=== PATIENT | female | born 1955 | race Caucasian/White ===

== ENCOUNTER 2024-06-27 13:58 | Inpatient (IN) | payer MEDICARE, MEDICAID ==
[~2024-06-27] VITALS: Ht 160 cm; Wt 76.3 kg
[~2024-06-27 13:58] MED LIST: LISI-892 PO; TRAZ-252 PO
[2024-06-27 15:34] LABS: BASOPHILS % (AUTO) 0.7 % (0.0-2.0); LYMPHOCYTES # (AUTO) 2.2 K/uL (1.0-4.8); LYMPHOCYTES % (AUTO) 37.3 % (22.0-44.0); MEAN CORPUSCULAR HEMOGLOBIN 29.8 pg (26.0-34.0); MEAN CORPUSCULAR HGB CONC 32.5 G/dL (31.0-37.0); MEAN CORPUSCULAR VOLUME 92 fL (80-100); MONOCYTES # (AUTO) 0.5 K/uL (0.1-1.0); MONOCYTES % (AUTO) 7.7 % (2.0-9.0); NEUTROPHILS % (AUTO) 51.3 % (40.0-70.0); PLATELET COUNT (AUTO) 117 K/uL (150-450); RED BLOOD CELL COUNT(AUTO) 4.37 MIL/uL (4.00-5.20); RED CELL DISTRIBUTION WIDTH 15.5 % (11.5-14.5); WHITE BLOOD COUNT (AUTO) 5.9 K/uL (4.5-11.0)
[2024-06-27 15:42] LABS: ANION GAP 10 mmol/L (8-16); CALCIUM, TOTAL 8.9 mg/dL (8.8-10.5); CARBON DIOXIDE 26 mmol/L (22-29); CHLORIDE 108 mmol/L (98-107); CREATININE 0.76 mg/dL (0.60-1.30); GLOMERULAR FILTR. RATE CALC > 60 mL/min (>60); GLUCOSE,RANDOM 90 mg/dL (70-110); POTASSIUM 3.7 mmol/L (3.5-5.1); SODIUM SERUM 144 mmol/L (136-145); UREA NITROGEN, BLOOD 9 mg/dL (7-18)
[2024-06-27 16:09] LABS: ALCOHOL, BLOOD (SERUM) 86 mg/dL (0-10)
[2024-06-27] MEDS: ChlordiazePOXIDE HCL 25 MG CAPSULE PO ONE (17:32)
[2024-06-27 17:37] LABS: COVID AG,FIA SOURCE NASAL SWAB
[2024-06-27 17:54] LABS: SARS-COV2 (COVID) ANTIGEN,FIA Negative (Negative)
[2024-06-27] MEDS: LORazepam 2 MG TABLET PO ONE (19:42)
[2024-06-28] MEDS ORDERED: ChlorproMAZINE HCL 25 MG TABLET PO PRN (02:30)
[2024-06-28 04:30] VITALS: BP 110/64; PULSE 78; RESP 18; TEMP 97.9; O2SAT 100
[2024-06-28 05:13] VITALS: BP 110/64; PULSE 78; RESP 18; TEMP 97.9; O2SAT 100
[2024-06-28] MEDS: LORazepam 1 MG TABLET PO PRN ×2 (08:40→19:09)
[2024-06-28] MEDS ORDERED: PNEUMOCOCCAL VACCINE POLYVALENT 0.5 ML SYRINGE [PPSV23] IM. ONE (09:15)
[2024-06-28 09:49] VITALS: BP 149/77; PULSE 77; RESP 18; TEMP 98.1; O2SAT 99
[2024-06-28] MEDS ORDERED: BACITRACIN 28 GM OINTMENT TP PRN (10:15)
[2024-06-28] MEDS ORDERED: DOCUSATE SODIUM 100 MG CAPSULE PO PRN (10:15)
[2024-06-28] MEDS ORDERED: MAG HYDROX/ALUMINUM HYD/SIMETH ES 30 ML SUSPENSION UDCUP PO PRN (10:15)
[2024-06-28] MEDS ORDERED: MAGNESIUM HYDROXIDE SUSPENSION 30 ML UDCUP PO PRN (10:15)
[2024-06-28] MEDS ORDERED: ONDANSETRON 4 MG TABLET PO PRN (10:15)
[2024-06-28] MEDS ORDERED: CloNIDine HCL 0.1 MG TABLET PO PRN (10:15)
[2024-06-28] MEDS ORDERED: ACETAMINOPHEN 325 MG TABLET PO PRN (10:15)
[2024-06-28] MEDS ORDERED: OMEPRAZOLE 20 MG CAPSULE PO PRN (10:15)
[2024-06-28] MEDS ORDERED: LOPERAMIDE HCL 2 MG CAPSULE PO PRN (10:15)
[2024-06-28] MEDS ORDERED: BENZOCAINE/MENTHOL [CEPACOL] LOZENGE PO PRN (10:15)
[2024-06-28] MEDS ORDERED: PETROLATUM,WHITE 28 GM JELLY TP PRN (10:15)
[2024-06-28 21:17] VITALS: BP 143/78; PULSE 57; RESP 16; TEMP 98.2; O2SAT 97
[2024-06-29] MEDS: GABAPENTIN 100 MG CAPSULE PO SCH (08:24)
[2024-06-29] MEDS: ESCITALOPRAM OXALATE 10 MG TABLET PO SCH (08:24)
[2024-06-29 10:11] VITALS: BP 134/74; PULSE 88; RESP 18; TEMP 97.1; O2SAT 99
[2024-06-29 21:39] VITALS: BP 131/77; PULSE 92; RESP 19; TEMP 98.6; O2SAT 99
[2024-06-30 09:23] VITALS: BP 157/77; PULSE 78; RESP 18; TEMP 97.7; O2SAT 98
[2024-06-30] MEDS: ChlorproMAZINE HCL 50 MG TABLET PO PRN (10:37)
[2024-06-30 12:56] LABS: GLUCOMETER DEV NAME(LOC) 3EX.2; GLUCOSE,POINT OF CARE 288 MG/DL (70-110)
[2024-06-30 15:15] VITALS: BP 136/101; PULSE 89; RESP 18; O2SAT 95
[2024-06-30 15:30] VITALS: BP 107/54; PULSE 77; RESP 18; O2SAT 94
[2024-06-30 18:00] VITALS: BP 100/56; PULSE 78; RESP 18; O2SAT 94
[2024-06-30 22:42] VITALS: BP 132/57; PULSE 68; RESP 18; TEMP 97.6; O2SAT 97
[2024-07-01 10:29] VITALS: BP 113/52; PULSE 83; RESP 18; TEMP 97; O2SAT 98
[2024-07-01 22:30] VITALS: RESP 16
[2024-07-02] MEDS: ZOLPIDEM TARTRATE 10 MG TABLET PO PRN (00:54)
[2024-07-02 09:18] VITALS: BP 128/72; PULSE 89; RESP 18; TEMP 97.8; O2SAT 97
[2024-07-02 14:21] VITALS: BP 142/86; PULSE 72; RESP 17; TEMP 98.1
[2024-07-02] MEDS: TraMADol HCL 50 MG TABLET PO PRN (14:21)
[2024-07-02 15:21] VITALS: BP 129/79; PULSE 71; RESP 17; TEMP 98
[2024-07-02 21:50] VITALS: BP 121/72; PULSE 70; RESP 19; TEMP 98.2; O2SAT 96
[2024-07-02 22:55] VITALS: RESP 18
[2024-07-03] VITALS (9 sets, daily range): BP systolic 105–138; BP diastolic 67–86; PULSE 73–94; RESP 17–18; TEMP 97.2–98.6; O2SAT 98–99
[2024-07-04] MEDS: LORazepam 0.5 MG TABLET PO PRN (01:27)
[2024-07-04 04:59] VITALS: BP 149/86; PULSE 91; RESP 18; O2SAT 96
[2024-07-04 05:59] VITALS: RESP 18
[2024-07-04 11:40] VITALS: BP 140/86; PULSE 80; RESP 18; TEMP 97.9; O2SAT 95
[2024-07-04 12:40] VITALS: BP 132/81; PULSE 78; RESP 17; TEMP 98; O2SAT 96
[2024-07-04 22:18] VITALS: BP 149/77; PULSE 86; RESP 18; TEMP 97.3; O2SAT 99
[2024-07-05] MEDS: MULTIVITAMINS, THERAPEUTIC TABLET PO SCH (08:57)
[2024-07-05] MEDS: FOLIC ACID 1 MG TABLET PO SCH (08:58)
[2024-07-05] MEDS: DULoxetine HCL 20 MG CAPSULE PO SCH (08:58)
[2024-07-05] MEDS: THIAMINE 100 MG TABLET PO SCH (08:58)
[2024-07-05 09:00] VITALS: BP 122/59; PULSE 89; RESP 17; TEMP 97.1
[2024-07-05 16:01] VITALS: BP 129/62; PULSE 80; RESP 17; TEMP 98.1
[2024-07-05] MEDS: PREGABALIN 25 MG CAPSULE PO SCH (16:01)
[2024-07-05 17:03] VITALS: BP 14/75; PULSE 85; RESP 18; TEMP 97.4; O2SAT 0
[2024-07-05 22:07] VITALS: BP 120/75; PULSE 87; RESP 18; TEMP 97.8; O2SAT 0
[2024-07-05 22:40] VITALS: BP 122/80; PULSE 85; RESP 18; TEMP 98; O2SAT 0
[2024-07-05 23:50] VITALS: BP 128/70; PULSE 80; RESP 18; TEMP 97.7; O2SAT 0
[2024-07-06 04:53] VITALS: BP 139/85; PULSE 99; RESP 18; TEMP 98; O2SAT 0
[2024-07-06 06:02] VITALS: RESP 17
[2024-07-06 08:00] VITALS: BP 129/76; PULSE 79; RESP 19; TEMP 97.3; O2SAT 100
[2024-07-06 14:32] VITALS: BP 130/72; PULSE 72; RESP 18; TEMP 98; O2SAT 98
[2024-07-06 21:06] VITALS: BP 136/60; PULSE 68; RESP 18; TEMP 98.1; O2SAT 97
[2024-07-07] MEDS: PREGABALIN 50 MG CAPSULE PO SCH (08:13)
[2024-07-07] MEDS: DULoxetine HCL 30 MG CAPSULE PO SCH (08:13)
[2024-07-07 10:11] VITALS: BP 118/60; PULSE 90; RESP 18; TEMP 97.9; O2SAT 96
[2024-07-07 13:07] VITALS: BP 124/64; PULSE 79; RESP 18; TEMP 97.6; O2SAT 97
[2024-07-07 21:03] VITALS: RESP 18
[2024-07-07 21:20] VITALS: BP 141/78; PULSE 97; RESP 18; TEMP 97.3; O2SAT 95
[2024-07-07 23:15] VITALS: RESP 18
[2024-07-08 00:15] VITALS: RESP 17
[2024-07-08 06:45] VITALS: BP 114/79; PULSE 84; RESP 18; O2SAT 95
[2024-07-08 10:27] VITALS: BP 147/66; PULSE 85; RESP 17; TEMP 98; O2SAT 98
[2024-07-08 20:31] VITALS: BP 150/91; PULSE 83; RESP 20; TEMP 97.3; O2SAT 100
[2024-07-08 23:54] VITALS: RESP 18
[2024-07-09 00:54] VITALS: RESP 18
[2024-07-09 08:30] VITALS: BP 156/81; PULSE 76; RESP 18; TEMP 97.3; O2SAT 98
[2024-07-09] MEDS: PREGABALIN 75 MG CAPSULE PO SCH (08:38)
[2024-07-09] MEDS: DULoxetine HCL 20 MG CAPSULE PO SCH (08:38)
[2024-07-09 18:25] VITALS: BP 145/70; PULSE 85; RESP 18; O2SAT 98
[2024-07-09 21:23] VITALS: BP 140/72; PULSE 80; RESP 18; TEMP 97.5; O2SAT 99
[2024-07-09 21:45] VITALS: BP 148/85; PULSE 80; RESP 18; TEMP 97.3; O2SAT 100
[2024-07-10 06:08] VITALS: BP 147/70; PULSE 83; RESP 18; TEMP 97.5; O2SAT 99
[2024-07-10 10:43] VITALS: BP 133/68; PULSE 68; RESP 17; TEMP 96.9; O2SAT 98
[2024-07-10 21:25] VITALS: BP 142/75; PULSE 73; RESP 18; TEMP 97.5; O2SAT 97
[2024-07-11 09:12] VITALS: BP 138/71; PULSE 79; RESP 18; TEMP 97.6; O2SAT 99
[2024-07-11 10:12] VITALS: BP 134/68; PULSE 74; RESP 18; TEMP 97.8; O2SAT 98
[2024-07-11 11:14] VITALS: BP 138/71; PULSE 79; RESP 18; TEMP 97.6; O2SAT 100
[2024-07-11] MEDS: LIDOCAINE 5% TRANSDERMAL PATCH TD ONE (18:25)
[2024-07-11 20:30] VITALS: BP 143/76; PULSE 85; RESP 16; TEMP 97.2; O2SAT 96
[2024-07-12] MEDS: DULoxetine HCL 60 MG CAPSULE PO SCH (08:27)
[2024-07-12] MEDS: PREGABALIN 50 MG CAPSULE PO SCH (08:27)
[2024-07-12] MEDS: modafiniL 100 MG TABLET PO SCH (08:28)
[2024-07-12] MEDS: DICLOFENAC SODIUM 1% 100 GM GEL [4GM] TP SCH (09:00)
[2024-07-12 10:55] VITALS: BP 120/81; PULSE 85; RESP 18; TEMP 97.9; O2SAT 98
[2024-07-12 14:35] VITALS: BP 150/87; PULSE 75; RESP 20; TEMP 98; O2SAT 96
[2024-07-12 20:39] VITALS: BP 147/90; PULSE 89; RESP 17; TEMP 97.5; O2SAT 100
[2024-07-12 21:41] VITALS: RESP 18
[2024-07-13] VITALS (9 sets, daily range): BP systolic 136–158; BP diastolic 73–91; PULSE 80–85; RESP 18; TEMP 97.5–98.8; O2SAT 100
[2024-07-13] MEDS: modafiniL 100 MG TABLET PO SCH (08:16)
[2024-07-14] MEDS: DULoxetine HCL 20 MG CAPSULE PO SCH (08:15)
[2024-07-14] MEDS: modafiniL 100 MG TABLET PO SCH (08:16)
[2024-07-14 09:43] VITALS: BP 143/89; PULSE 83; RESP 18; TEMP 98.2; O2SAT 99
[2024-07-14 22:21] VITALS: BP 150/88; PULSE 84; RESP 18; TEMP 98.1; O2SAT 100
[2024-07-15 08:46] VITALS: BP 156/76; PULSE 78; RESP 18; TEMP 97.7; O2SAT 100
[2024-07-15] MEDS: modafiniL 100 MG TABLET PO SCH (09:47)
[2024-07-15 11:29] LABS: APPEARANCE,URINE HAZY (CLEAR); BILIRUBIN,URINE NEGATIVE (NEGATIVE); COLOR,URINE YELLOW (YELLOW); GLUCOSE, URINE (UA) NEGATIVE (NEGATIVE); KETONES,URINE NEGATIVE (NEGATIVE); LEUKOCYTE ESTERASE ,URINE NEGATIVE (NEGATIVE); NITRATE,URINE NEGATIVE (NEGATIVE); OCCULT BLOOD,URINE NEGATIVE (NEGATIVE); PROTEIN,URINE NEGATIVE (NEGATIVE); SPECIFIC GRAVITIY, URINE 1.012 (1.003-1.030); UROBILINOGEN,URINE <=1.0 mg/dL (<=1.0)
[2024-07-15 17:17] LABS: BASOPHILS % (AUTO) 0.7 % (0.0-2.0); HEMATOCRIT 35.5 % (36-46); HEMOGLOBIN 11.9 g/dL (12.0-16.0); LYMPHOCYTES # (AUTO) 1.3 K/uL (1.0-4.8); LYMPHOCYTES % (AUTO) 21.6 % (22.0-44.0); MEAN CORPUSCULAR HEMOGLOBIN 30.7 pg (26.0-34.0); MEAN CORPUSCULAR HGB CONC 33.6 G/dL (31.0-37.0); MEAN CORPUSCULAR VOLUME 91 fL (80-100); MONOCYTES # (AUTO) 0.7 K/uL (0.1-1.0); MONOCYTES % (AUTO) 11.9 % (2.0-9.0); NEUTROPHILS # (AUTO) 3.8 K/uL (1.8-7.7); NEUTROPHILS % (AUTO) 62.8 % (40.0-70.0); PLATELET COUNT (AUTO) 136 K/uL (150-450); RED BLOOD CELL COUNT(AUTO) 3.89 MIL/uL (4.00-5.20); RED CELL DISTRIBUTION WIDTH 15.3 % (11.5-14.5)
[2024-07-15 17:25] LABS: ALANINE AMINOTRANSFERASE 26 U/L (12-78); ALBUMIN 3.2 g/dL (3.4-5.0); ALKALINE PHOSPHATASE 114 U/L (46-116); ANION GAP 8 mmol/L (8-16); ASPARTATE AMINOTRANSFERASE 37 U/L (15-37); CALCIUM, TOTAL 9.1 mg/dL (8.8-10.5); CARBON DIOXIDE 25 mmol/L (22-29); CHLORIDE 95 mmol/L (98-107); GLOMERULAR FILTR. RATE CALC > 60 mL/min (>60); GLUCOSE,RANDOM 90 mg/dL (70-110); SODIUM SERUM 128 mmol/L (136-145); UREA NITROGEN, BLOOD 14 mg/dL (7-18)
[2024-07-15 18:43] VITALS: BP 153/85; PULSE 83; RESP 18; TEMP 97.5; O2SAT 98
[2024-07-15 19:43] VITALS: RESP 18
[2024-07-15 23:00] VITALS: BP 123/108; RESP 18; TEMP 97; TEMP 98.8; O2SAT 100; O2SAT 98
[2024-07-16 02:51] VITALS: BP 131/101; PULSE 83; RESP 18; TEMP 98.8; O2SAT 100
[2024-07-16 03:51] VITALS: RESP 18
[2024-07-16] MEDS: ALBUTEROL SULFATE HFA 90 MCG/PUFF 8 GM INHALER IH PRN (09:25)
[2024-07-16 13:01] VITALS: BP 99/69; PULSE 61; RESP 18; TEMP 97.9; O2SAT 97
[2024-07-16 21:20] VITALS: BP 144/84; PULSE 77; RESP 18; TEMP 98.2
[2024-07-17 06:40] VITALS: BP 121/78; PULSE 81; RESP 18; TEMP 97.7
[2024-07-17 11:06] VITALS: BP 134/68; PULSE 84; RESP 18; TEMP 98.1
[2024-07-17 21:46] VITALS: BP 124/67; PULSE 75; RESP 19; TEMP 97.5; O2SAT 98
[2024-07-18] VITALS (14 sets, daily range): BP systolic 119–140; BP diastolic 60–77; PULSE 60–82; RESP 17–18; TEMP 97.7–98.1; O2SAT 96–100
[2024-07-18] MEDS: PERMETHRIN 1% 60 ML LOTION TP ONE (09:13)
[2024-07-18] MEDS: PETROLATUM,WHITE 28 GM JELLY TP PRN (16:22)
[2024-07-19] MEDS: DULoxetine HCL 30 MG CAPSULE PO SCH (08:43)
[2024-07-19 13:34] VITALS: BP 128/69; PULSE 69; RESP 18; TEMP 98.6; O2SAT 96
[2024-07-19 16:23] VITALS: BP 132/72; PULSE 70; RESP 18; TEMP 97.8; O2SAT 99
[2024-07-19 21:04] VITALS: BP 138/92; PULSE 75; RESP 20; TEMP 98.2; O2SAT 100
[2024-07-19 22:34] VITALS: BP 135/88; PULSE 78; RESP 18; TEMP 98; O2SAT 98
[2024-07-19 23:37] VITALS: RESP 18
[2024-07-20] VITALS (9 sets, daily range): BP systolic 119–144; BP diastolic 70–87; PULSE 70–96; RESP 17–20; TEMP 97.5–98; O2SAT 0–97
[2024-07-20] MEDS: IBUPROFEN 600 MG TABLET PO PRN (21:51)
[2024-07-21 04:36] VITALS: BP 128/70; PULSE 82; RESP 18; TEMP 97.8; O2SAT 97
[2024-07-21] MEDS: DULoxetine HCL 20 MG CAPSULE PO SCH (09:58)
[2024-07-21 10:48] VITALS: BP 146/83; PULSE 74; RESP 18; TEMP 97.7; O2SAT 96
[2024-07-21 10:51] VITALS: BP 146/83; PULSE 74; RESP 18; TEMP 97.7; O2SAT 96
[2024-07-21] MEDS: SODIUM CHLORIDE 1 GM TABLET PO SCH (13:14)
[2024-07-21 23:21] VITALS: BP 136/70; PULSE 81; RESP 18; TEMP 98.2; O2SAT 100
[2024-07-21 23:23] VITALS: BP 136/70; PULSE 81; RESP 18; TEMP 98.2; O2SAT 100
[2024-07-22] MEDS: DULoxetine HCL 60 MG CAPSULE PO SCH (09:36)
[2024-07-22 10:00] VITALS: BP 124/72; PULSE 76; RESP 18; TEMP 97.9; O2SAT 99
[2024-07-22 22:30] VITALS: BP 126/91; PULSE 85; RESP 18; TEMP 98
[2024-07-22 22:34] VITALS: BP 126/91; PULSE 85; RESP 18; TEMP 98; O2SAT 97
[2024-07-22 22:48] VITALS: BP 126/91; PULSE 85; RESP 18; TEMP 98
[2024-07-23 09:28] VITALS: BP 134/86; PULSE 85; RESP 18; TEMP 97.5; O2SAT 98
[2024-07-23 10:56] VITALS: BP 135/72; PULSE 75; RESP 16; TEMP 98.2; O2SAT 98
[2024-07-23 12:15] VITALS: BP 128/86; PULSE 78; RESP 18; TEMP 98; O2SAT 99
[2024-07-23 23:00] VITALS: BP 136/70; PULSE 80; RESP 18; TEMP 98.1; O2SAT 98
[2024-07-23 23:55] VITALS: BP 98/54; PULSE 74; RESP 18; TEMP 98.1; O2SAT 98
[2024-07-24 08:00] VITALS: BP 145/72; PULSE 79; RESP 19; TEMP 97.8; O2SAT 98
[2024-07-24 19:45] VITALS: BP 138/74; PULSE 84; RESP 18; TEMP 98.1; O2SAT 97
[2024-07-24 20:49] VITALS: BP 128/59; PULSE 71; RESP 18; TEMP 98.2; O2SAT 96
[2024-07-24 21:14] VITALS: BP 128/59; PULSE 71; RESP 18; TEMP 98.2; O2SAT 96
[2024-07-25 01:35] VITALS: BP 131/70; PULSE 80; RESP 19; TEMP 97.6; O2SAT 98
[2024-07-25] MEDS ORDERED: PERMETHRIN 1% 60 ML LOTION TP ONE (10:15)
[2024-07-25 10:44] VITALS: BP 127/83; PULSE 75; RESP 18; TEMP 98.2; O2SAT 97
[2024-07-25 13:12] LABS: ANION GAP 5 mmol/L (8-16); CALCIUM, TOTAL 8.5 mg/dL (8.8-10.5); CARBON DIOXIDE 29 mmol/L (22-29); CHLORIDE 95 mmol/L (98-107); CREATININE 0.54 mg/dL (0.60-1.30); GLOMERULAR FILTR. RATE CALC > 60 mL/min (>60); GLUCOSE,RANDOM 96 mg/dL (70-110); POTASSIUM 3.8 mmol/L (3.5-5.1); SODIUM SERUM 129 mmol/L (136-145); UREA NITROGEN, BLOOD 9 mg/dL (7-18)
[2024-07-25 14:00] VITALS: BP 130/80; PULSE 80; RESP 20; TEMP 98.3; O2SAT 96
[2024-07-25 20:52] VITALS: BP 106/65; PULSE 84; RESP 17; RESP 18; TEMP 98.4; O2SAT 98
[2024-07-26] MEDS: ARIPiprazole 2 MG TABLET PO SCH (09:39)
[2024-07-26 10:00] VITALS: BP 131/89; PULSE 72; RESP 18; TEMP 97.8; O2SAT 96
[2024-07-26] MEDS ORDERED: PERMETHRIN 1% 60 ML LOTION TP ONE (15:30)
[2024-07-26 20:00] VITALS: BP 145/77; PULSE 82; RESP 18; TEMP 97.3; O2SAT 99
[2024-07-26 22:45] VITALS: RESP 18
[2024-07-26 23:45] VITALS: RESP 18
[2024-07-27] MEDS ORDERED: DULO60CA45 PO (13:22)
[2024-07-27] MEDS ORDERED: ARIP2TAB27 PO (13:22)
[2024-07-27] MEDS ORDERED: MODA100T65 PO (13:23)
[2024-07-27] MEDS ORDERED: PREG50 PO (13:23)
[2024-07-27 13:51] VITALS: BP 98/62; PULSE 81; RESP 18; TEMP 98.6
== END 2024-07-27 19:05 | DRG 885 ==
LOC: EMS 13:58 → 3EI 06-28 03:34 → 3EX 07-20 22:43
PROVIDERS: ADMIT Psychiatry & Neurology Psychiatry; ATTEND Psychiatry & Neurology Psychiatry
PROC: GZ56ZZZ Individual Psychotherapy, Supportive (ICD-10-PCS; principal; 2024-06-29)
DX: F33.2 Major depressive disorder, recurrent severe without psychotic features (principal); E87.1 Hypo-osmolality and hyponatremia; R45.851 Suicidal ideations; I10 Essential (primary) hypertension; K21.9 Gastro-esophageal reflux disease without esophagitis; F41.9 Anxiety disorder, unspecified; G47.00 Insomnia, unspecified; K74.60 Unspecified cirrhosis of liver; Z20.822 Contact with and (suspected) exposure to COVID-19; B85.2 Pediculosis, unspecified; B86 Scabies; G35 Multiple sclerosis; G89.29 Other chronic pain; F10.129 Alcohol abuse with intoxication, unspecified; Y90.9 Presence of alcohol in blood, level not specified; Z79.899 Other long term (current) drug therapy; Z63.4 Disappearance and death of family member
CPT/HCPCS: 70450; 80048; 80053; 81003; 82962; 83036; 84295; 85025; 93925; 93970; 97110; 97116; 97162; 97167; 97530; 97535; 99285; G0378; G0480; J3535